=== PATIENT | female | born 1980 | race Caucasian/White ===

== ENCOUNTER → 2017-10-26 12:44 | Outpatient (CLI) | payer BC, SELFPAY | PROVIDERS: PCP Family Medicine; Visit Provider Nurse Practitioner Family | DX: Z02.9 Encounter for administrative examinations, unspecified (principal) ==

== ENCOUNTER 2020-07-12 14:07 | Emergency (ER) | payer BC, SELFPAY ==
[2020-07-12 14:20] VITALS: BP 100/50; PULSE 87; RESP 16; TEMP 36.8; O2SAT 100; BMI 25.0
[2020-07-12 14:25] VITALS: BP 100/50; PULSE 87; RESP 16; TEMP 36.8; O2SAT 100; BMI 25.0
--- NOTE | 2020-07-12 14:47 | HMH.EDUTC ---
[facility] [place] Clinical Impression: Overexertion Qualifiers: Encounter type: initial encounter Qualified Code(s): X50.9XXA - Other and unspecified overexertion or strenuous movements or postures, initial encounter Anemia Qualifiers: Anemia type: unspecified type Qualified Code(s): D64.9 - Anemia, unspecified Disposition: Home, Self-Care Condition on Discharge: Good Instructions: Anemia Additional Instructions: Follow up with your primary care physician to go over your lab work and discuss your anemia. Don't over exert yourself until you have a better idea about the cause of your anemia and you are correcting it. Drink plenty of fluids. Eat a diet that is high in iron. GO TO THE ER FOR ANY WORSENING SYMPTOMS OR CONCERNS Referrals: Andreina Dominguez [Primary Care Provider] - Time of Disposition: 15:54 Medical Decision Making - Medical Records Medical records reviewed: No: I reviewed the patient's medical records. - Rogerio Inquiry Pt receiving controlled substance: No Vital Signs: 07/12/20 14:20 07/12/20 14:25 07/12/20 15:56 Temperature 98.3 F 98.3 F 98.3 F Temperature Source Oral Oral Pulse Rate 87 Pulse Rate [Right] 87 87 Respiratory Rate 16 16 16 Blood Pressure 100/50 L Blood Pressure [Right Arm] 100/50 L 100/50 L Blood Pressure Mean [Right Arm] 66 66 Blood Pressure Source [Right Arm] Automatic Cuff Automatic Cuff Blood Pressure Position [Right Arm] Sitting Sitting 02 Sat by Pulse Oximetry 100 100 Oxygen Delivery Method Room Air Room Air - Lab Data Lab results reviewed: Yes: I reviewed the patient's lab results. Lab Results 07/12/20 15:00: WBC 13.0 H, RBC 3.96 L, Hgb 11.9 L, Hct 36.2 L, MCV 91.3, MCH 30.1, MCHC 32.9, RDW 12.9, Plt Count 223, MPV 8.6, Neut % (Auto) 92.9 H, Lymph % (Auto) 3.4 L, Piute % (Auto) 3.0, Eos % (Auto) 0.5, Baso % (Auto) 0.3, Neut # (Auto) 12.1 H, Lymph # (Auto) 0.4 L, Piute # (Auto) 0.4, Eos # (Auto) 0.1, Baso # (Auto) 0.0, Total Counted 100, Neutrophils % (Manual) 85 H, Band Neutrophils % 1.0, Lymphocytes % (Manual) 9 L, Monocytes % (Manual) 4, Eosinophils % (Manual) 1, Platelet Estimate Normal, RBC Morphology Normal 07/12/20 15:00: PT 12.6 H, INR 1.15 H, APTT 27.1 07/12/20 15:00: Sodium 136, Potassium 4.1, Chloride 106, Carbon Dioxide 24, Anion Gap 10.1, BUN 17, Creatinine 1.10 H, Estimated Creat Clear 74, Estimated GFR 55 L, Est GFR ( Amer) 67, Glucose 160 H, Calcium 9.4, Magnesium 1.7, Total Bilirubin 1.2, AST 34, ALT 25, Alkaline Phosphatase 59, Total Protein 7.2, Albumin 4.4, Globulin 2.8, Albumin/Globulin Ratio 1.6 Result diagrams: 07/12/20 15:00 07/12/20 15:00 Orders (Tests/Meds): ED MEDICATIONS Discontinued Medications Generic Name Dose Route Start Last Admin Trade Name Freq PRN Reason Stop Dose Admin Sodium Chloride 1,000 mls @ 999 mls/hr 07/12/20 15:00 07/12/20 15:04 Sod Chlor 0.9% 1000ml Bag IV 07/12/20 16:00 999 mls/hr .Q1H1M KATARINA Administration [facility] [place] - General Stated complaint: possibly overexerted self on treadmill Time Seen by Provider: 07/12/20 14:47 Mode of Arrival: Ambulatory Source of Information: Patient Limitations: No Limitations Description of Symptoms (Recalled from Triage Doc. by RN): pt advises she ran on the treadmill this morning and is now feeling weak, pt has multiple complaints that are of different sorts. Advises she has uclers and that could be some of her pain/. she is just not really sure what is going on. Denies any N/V/D. Advises she is also shaking and feels cold HEENT Symptoms (Recalled from RN notes): No Resp Symptoms (Recalled from RN notes): No Skin Symptoms (Recalled from RN notes): No MS Symptoms (Recalled from RN notes): No Functional Status (Recalled from RN notes): WNL - History of Present Illness Provider Complaint: She states that she ran 12 miles on a treadmill this morning, then started feeling very bad on her way home from the gym this morning. She denies
--- NOTE | 2020-07-12 14:53 | ECG_ITS ---
APPROVED REPORT Exam: Resting ECG HR:76 bpm ECG Measurements Heart Rate 76 AXES MS 180 P 50 QRSd 76 QRS 15 QT 398 T 41 QTc 447 Conclusion Normal sinus rhythm Normal ECG Electronically signed by : Raphael Jaimes, 07/12/2020 19:33:26
[2020-07-12 15:14] LABS: Basophils % 0.3 % (0.1-2.0); Eosinophils # 0.1 K/mm3 (0.0-0.4); Eosinophils % 0.5 % (0.1-12.0); Hematocrit 36.2 % (37.0-47.0); Hemoglobin 11.9 g/dL (12.2-16.2); Lymphocytes # 0.4 K/mm3 (0.7-4.5); Lymphocytes % 3.4 % (10-50); Mean Corpuscular HGB Conc 32.9 g/dL (31.8-35.4); Mean Corpuscular Hemoglobin 30.1 pg (27.0-31.2); Mean Corpuscular Volume 91.3 fl (81-99); Mean Platelet Volume 8.6 fl (7.4-10.4); Monocytes # 0.4 K/mm3 (0.1-1.0); Neutrophils # 12.1 K/mm3 (1.8-7.8); Neutrophils % 92.9 % (37.0-80.0); Platelet Count 223 K/mm3 (142-424); Red Blood Count 3.96 M/mm3 (4.20-5.40); Red Cell Distribution Width 12.9 % (11.5-17.5)
[2020-07-12 15:17] LABS: MANUAL DIFFERENTIAL MANUAL DIFFERENTIAL (MANUAL DIFF)
[2020-07-12 15:18] LABS: Chloride 106 mmol/L (98-107); Potassium 4.1 mmoL/L (3.5-5.1); Sodium 136 mmol/L (136-145)
[2020-07-12 15:20] LABS: Blood Urea Nitrogen 17 mg/dl (7-17); Creatinine Clearance Estimated 74 mL/min (50-200); Estimated Glomerular Filt Rate 55 ml/min (>60); GFR (African American) 67 ML/MIN (>60)
[2020-07-12 15:21] LABS: Alanine Aminotransferase 25 U/L (12-78); Albumin Level 4.4 g/dl (3.5-5.0); Albumin/Globulin Ratio 1.6 (1.1-1.8); Alkaline Phosphatase 59 U/L (38-126); Anion Gap 10.1 mEq/L (5-15); Aspartate Amino Transferase 34 U/L (14-36); Bilirubin,Total 1.2 mg/dl (0.2-1.3); Calcium 9.4 mg/dl (8.4-10.2); Carbon Dioxide 24 mmol/L (22.0-30.0); Globulin 2.8 g/dL (1.3-3.2); Glucose 160 mg/dl (74-100); Magnesium 1.7 mg/dl (1.6-2.3); Total Protein,Serum 7.2 g/dl (6.3-8.2)
[2020-07-12 15:25] LABS: Activated Partial Thrombo Time 27.1 seconds (23.6-34.0); INR 1.15 (0.9-1.1); Prothrombin Time 12.6 seconds (9.4-11.8)
[2020-07-12 15:29] LABS: Eosinophils % 1 % (0-3); Lymphocytes % 9 % (10-50); Monocytes % 4 % (2-9); Neutrophils % 85 % (42-76); Platelet Estimate Normal; RBC Morphology Normal; Total Cells Counted 100
[2020-07-12 15:56] VITALS: BP 100/50; PULSE 87; RESP 16; TEMP 36.8; O2SAT 100
== END 2020-07-12 16:13 | disposition home or self-care (01) ==
LOC: ER 14:21 → UTC 14:22
PROVIDERS: Emergency Provider Nurse Practitioner Family; PCP Family Medicine
DX: R53.83 Other fatigue (principal); X50.9XXA Other and unspecified overexertion or strenuous movements or postures, initial encounter; D64.9 Anemia, unspecified; R73.9 Hyperglycemia, unspecified
CPT/HCPCS: 80053; 83735; 85007; 85025; 85610; 85730; 93005; 96365; 99202; G0463